=== PATIENT | male | born 1990 | race African-American/Black ===

== ENCOUNTER 2021-12-15 12:49 | Emergency (ER) | payer OTHER ==
[~2021-12-15] VITALS: Ht 167.6 cm; Wt 70.0 kg
[~2021-12-15 12:49] MED LIST: PALI6TAB3 PO
--- NOTE | 2021-12-15 16:19 | RAD ---
Exam: Chest one view INDICATION: Cough TECHNIQUE: Frontal view of the chest Comparisons: None FINDINGS: The cardiomediastinal silhouette and pulmonary vessels are within normal limits. The lung and pleural spaces are clear. IMPRESSION: No acute cardiopulmonary process. Electronically signed by: Carmelita Melton MD (12/15/2021 4:17 PM) TREVOR
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
[2021-12-15 17:51] VITALS: BP 147/81
== END 2021-12-15 17:52 | disposition home or self-care (01) ==
LOC: ER 12:49
DX: S13.9XXA Sprain of joints and ligaments of unspecified parts of neck, initial encounter (principal); M54.50 Low back pain, unspecified; R05.9 Cough, unspecified; R51.9 Headache, unspecified; R07.89 Other chest pain; F17.200 Nicotine dependence, unspecified, uncomplicated; Z95.5 Presence of coronary angioplasty implant and graft; V49.59XA Passenger injured in collision with other motor vehicles in traffic accident, initial encounter; Y93.89 Activity, other specified; Y92.488 Other paved roadways as the place of occurrence of the external cause; Y99.8 Other external cause status
CPT/HCPCS: 70450; 71045; 72125; 72128; 72131; 99284-25